=== PATIENT | male | born 1970 | race Caucasian/White ===

== ENCOUNTER 2024-07-06 06:58 | Inpatient (IN) | payer OTHER ==
[~2024-07-06] VITALS: Ht 152.4 cm; Wt 81.6 kg
[2024-07-06] MEDS ORDERED: KETOROLAC TROMETHAMINE 60 MG VIAL IM STA (08:22)
[2024-07-06 09:00] LABS: PLATELET COUNT 125 K/uL (150-450)
[2024-07-06 09:15] LABS: ANION GAP 13 (10.0-20.0); CARBON DIOXIDE 22 mEq/L (21-32); CHLORIDE 99 mmol/L (98-107); GFR 39.37; POTASSIUM 3.83 mEq/L (3.5-5.1); SODIUM 130 mmol/L (136-145)
[2024-07-06 09:24] LABS: PH,URINE 5.5 (5.0-8.0); URINE APPEARANCE Turbid; URINE BILIRRUBIN Moderate (NEGATIVE); URINE BLOOD Large; URINE COLOR Orange; URINE KETONE Negative (NEGATIVE); URINE LEUKOCYTE Small; URINE NITRATE Positive
[2024-07-06 09:25] LABS: URINE BACTERIA 269.6 uL (0.0-1933); URINE EPITHELIAL CELLS 174.7 uL (0.0-38.8); URINE WBC 179.1 uL (0.0-23.2)
[2024-07-06 09:57] LABS: ALBUMIN 2.3 gm/dL (3.4-5.0); ALT/SGPT 311 U/L (12-78); AST/SGOT 265 U/L (15-37); BILIRUBIN,CONJUGATED 2.36 mg/dL (0.0-0.2)
[2024-07-06 10:00] LABS: BILIRUBIN,UNCONJUGATED 2.24 mg/dL (0.0-0.6)
[2024-07-06 10:01] LABS: GLUCOSE FASTING 327 mg/dL (65-100)
[2024-07-06 10:03] LABS: URINE CAST > 21.83 uL (0.0-1.40); URINE GLUCOSE 100 MG/DL (NEGATIVE); URINE PROTEIN 300 (NEGATIVE)
[2024-07-06 10:04] LABS: URINE CRYSTALS FEW /HPF
[2024-07-06] MEDS ORDERED: RINGERS SOLUTION,LACTATED 1,000 ML IV SCH (10:30)
[2024-07-06 11:13] LABS: ANION GAP 11 (10.0-20.0); CARBON DIOXIDE 24 mEq/L (21-32); CHLORIDE 98 mmol/L (98-107); CREATININE SERUM 1.05 mg/dL (0.70-1.30); GFR 73.33; POTASSIUM 3.96 mEq/L (3.5-5.1); SODIUM 129 mmol/L (136-145)
[2024-07-06 11:14] LABS: LIPASE 2258 U/L (13-75)
[2024-07-06 11:41] LABS: MEAN CORPUSCULAR HEMOGLOBIN 35.9 pg (27.00-32.0); RED BLOOD COUNT 3.45 M/uL (4.00-6.00)
[2024-07-06 11:42] LABS: HEMATOCRIT 34.4 % (39.0-48.0); MEAN CELL VOLUME 99.6 fL (80.0-100.00); MEAN CORPUSCULAR HGB CONC 36.1 g/dl (32.0-36.0); RED CELL DISTRIBUTION WIDTH 15.4 % (11.5-14.5)
[2024-07-06 11:45] LABS: HEMOGLOBIN 12.4 g/dL (13-16.00)
[2024-07-06] MEDS ORDERED: CIPROFLOXACIN IN 5 % DEXTROSE 400 MG/200 ML PIGGYBAG IV SCH (12:27)
[2024-07-06] MEDS ORDERED: PANTOPRAZOLE SODIUM 40 MG/VIAL VIAL IV SCH (12:27)
[2024-07-06] MEDS ORDERED: METRONIDAZOLE/SODIUM CHLORIDE 500 MG/100 ML PIGGYBACK IV SCH (12:27)
[2024-07-06] MEDS ORDERED: 0.9 % SODIUM CHLORIDE 1,000 ML IV SCH (12:30)
[2024-07-06] MEDS ORDERED: MEPERIDINE HCL/PF 25 MG/ML VIAL IV PRN (12:30)
[2024-07-06 12:33] LABS: GLUCOSE FASTING 304 mg/dL (65-100)
[2024-07-06] MEDS ORDERED: DEXTROSE 50 % IN WATER 0.5 G/ML DISP.SYRIN IV PRN (12:45)
[2024-07-06] MEDS ORDERED: INSULIN LISPRO 1,000 UNIT/10 ML UNITS SUBCUTANEO PRN (12:45)
[2024-07-06 12:47] VITALS: BP 132/84
[2024-07-06 15:18] VITALS: BP 122/83; O2SAT 96
[2024-07-06 16:24] VITALS: BP 141/83; O2SAT 96
[2024-07-06 21:30] VITALS: BP 133/79; O2SAT 96
[2024-07-07 04:00] VITALS: BP 119/79; O2SAT 95
[2024-07-07 07:00] LABS: AMYLASE 560 U/L (25-115); LIPASE 1405 U/L (13-75)
[2024-07-07 07:02] LABS: ALBUMIN 2.4 gm/dL (3.4-5.0); ALKALINE PHOSPHATASE 239 U/L (50-136); ANION GAP 20 (10.0-20.0); BILIRUBIN TOTAL 5.05 mg/dL (0.3-1.2); CARBON DIOXIDE 16 mEq/L (21-32); CHLORIDE 103 mmol/L (98-107); CREATININE SERUM 2.34 mg/dL (0.70-1.30); GFR 29.08; GLUCOSE FASTING 198 mg/dL (65-100); POTASSIUM 3.98 mEq/L (3.5-5.1); SODIUM 135 mmol/L (136-145)
[2024-07-07 07:08] LABS: CHOL HDL RATIO 16.4 (0-5.0)
[2024-07-07 07:21] LABS: BLOOD UREA NITROGEN 19 mg/dL (7-18); BUN CREA RATIO 8 (7.0-25.0); OSMOLALITY SERUM 278 MOSM/KG (275-295)
[2024-07-07 07:34] LABS: ALT/SGPT 73 U/L (12-78); AST/SGOT 158 U/L (15-37)
[2024-07-07 07:35] LABS: PLATELET COUNT 139 K/uL (150-450); RED BLOOD COUNT 4.35 M/uL (4.00-6.00); RED CELL DISTRIBUTION WIDTH 15.4 % (11.5-14.5)
[2024-07-07 08:26] LABS: MEAN CELL VOLUME 97.9 fL (80.0-100.00); MEAN CORPUSCULAR HGB CONC 32.8 g/dl (32.0-36.0)
[2024-07-07 08:27] LABS: HEMOGLOBIN 14.4 g/dL (13-16.00); MEAN CORPUSCULAR HEMOGLOBIN 33.1 pg (27.00-32.0)
[2024-07-07 08:48] VITALS: BP 120/69; O2SAT 98
[2024-07-07] MEDS ORDERED: CEFTRIAXONE SODIUM 2,000 MG VIAL IV SCH (12:00)
[2024-07-07] MEDS ORDERED: FAMOTIDINE/PF 20 MG/2 ML VIAL IV NR (12:00)
[2024-07-07] MEDS ORDERED: FAMOTIDINE/PF 20 MG/2 ML VIAL IV SCH (17:00)
[2024-07-07 18:13] VITALS: BP 116/78; O2SAT 97
[2024-07-08 00:58] VITALS: BP 116/85
[2024-07-08 06:59] LABS: ALBUMIN 2.3 gm/dL (3.4-5.0); ALKALINE PHOSPHATASE 208 U/L (50-136); AMYLASE 288 U/L (25-115); ANION GAP 18 (10.0-20.0); BILIRUBIN TOTAL 6.27 mg/dL (0.3-1.2); BLOOD UREA NITROGEN 35 mg/dL (7-18); BUN CREA RATIO 12 (7.0-25.0); CARBON DIOXIDE 18 mEq/L (21-32); CHLORIDE 107 mmol/L (98-107); CREATININE SERUM 2.88 mg/dL (0.70-1.30); GFR 22.89; GLOBULINA 3.5 G/DL (2.4-3.5); GLUCOSE FASTING 164 mg/dL (65-100); OSMOLALITY SERUM 289 MOSM/KG (275-295); POTASSIUM 4.01 mEq/L (3.5-5.1); SODIUM 139 mmol/L (136-145); TOTAL PROTEIN 5.8 gm/dL (6.4-8.2)
[2024-07-08 07:15] LABS: AST/SGOT 145 U/L (15-37)
[2024-07-08 07:38] LABS: LIPASE 686 U/L (13-75)
[2024-07-08 08:07] LABS: ALT/SGPT 55 U/L (12-78)
[2024-07-08 08:42] VITALS: BP 127/66
[2024-07-08] MEDS ORDERED: FAMOTIDINE/PF 20 MG/2 ML VIAL IV SCH (09:00)
[2024-07-08 17:48] VITALS: BP 132/80; O2SAT 97
[2024-07-09 01:35] VITALS: BP 158/73
[2024-07-09 06:59] LABS: ALBUMIN 2.5 gm/dL (3.4-5.0); BILIRUBIN TOTAL 6.28 mg/dL (0.3-1.2); CREATININE SERUM 1.54 mg/dL (0.70-1.30); GFR 47.13; GLOBULINA 3.5 G/DL (2.4-3.5); POTASSIUM 3.79 mEq/L (3.5-5.1); PROSTATIC SPECIFIC ANTIGEN 0.676 NG/ML (0.010-4.00)
[2024-07-09 07:09] LABS: CHOL HDL RATIO 15.6 (0-5.0)
[2024-07-09 08:11] LABS: CALCIUM 5.9 mg/dL (8.5-10.1)
[2024-07-09 09:48] VITALS: BP 133/80; O2SAT 96
[2024-07-09] MEDS ORDERED: ACETAMINOPHEN 500 MG GEL..CAP PO PRN (18:00)
[2024-07-09 18:12] VITALS: BP 148/87; O2SAT 95
[2024-07-10 00:48] VITALS: BP 160/98; O2SAT 99
[2024-07-10] MEDS ORDERED: GEMFIBROZIL 600 MG TABLET PO SCH (09:00)
[2024-07-10] MEDS ORDERED: LEVALBUTEROL HCL 1.25 MG/3 ML SOLUTION IH SCH (09:00)
[2024-07-10 10:09] VITALS: BP 151/90; O2SAT 99
[2024-07-10 10:38] LABS: HEMATOCRIT 31.9 % (39.0-48.0); HEMOGLOBIN 10.8 g/dL (13-16.00); MEAN CELL VOLUME 94.6 fL (80.0-100.00); MEAN CORPUSCULAR HGB CONC 33.8 g/dl (32.0-36.0); PLATELET COUNT 182 K/uL (150-450); RED BLOOD COUNT 3.37 M/uL (4.00-6.00); RED CELL DISTRIBUTION WIDTH 15.6 % (11.5-14.5)
[2024-07-10 18:11] VITALS: BP 152/81
[2024-07-11 02:19] VITALS: BP 160/100
[2024-07-11 08:45] LABS: ALBUMIN 2.2 gm/dL (3.4-5.0); BILIRUBIN TOTAL 3.68 mg/dL (0.3-1.2); CALCIUM 8.1 mg/dL (8.5-10.1); CREATININE SERUM 0.81 mg/dL (0.70-1.30); GFR 98.93; GLOBULINA 3.3 G/DL (2.4-3.5); POTASSIUM 3.64 mEq/L (3.5-5.1); TOTAL PROTEIN 5.5 gm/dL (6.4-8.2)
[2024-07-11 09:50] VITALS: BP 154/86; O2SAT 97
[2024-07-11 20:08] VITALS: BP 156/82
[2024-07-12 01:40] VITALS: BP 154/93
[2024-07-12 08:53] VITALS: BP 158/85; O2SAT 99
[2024-07-12] MEDS ORDERED: METOPROLOL SUCCINATE 25 MG TAB.SR.24H PO SCH (10:56)
[2024-07-12] MEDS ORDERED: LOSARTAN POTASSIUM 25 MG TABLET PO SCH (10:57)
[2024-07-12 19:13] VITALS: BP 150/85; O2SAT 95
[2024-07-13 00:59] VITALS: BP 156/85
[2024-07-13 06:31] LABS: HEMATOCRIT 30.8 % (39.0-48.0); HEMOGLOBIN 10.3 g/dL (13-16.00); MEAN CELL VOLUME 95.4 fL (80.0-100.00); MEAN CORPUSCULAR HEMOGLOBIN 31.8 pg (27.00-32.0); MEAN CORPUSCULAR HGB CONC 33.3 g/dl (32.0-36.0); PLATELET COUNT 240 K/uL (150-450); RED BLOOD COUNT 3.23 M/uL (4.00-6.00); RED CELL DISTRIBUTION WIDTH 15.6 % (11.5-14.5)
[2024-07-13 07:13] LABS: CHOL HDL RATIO 13.8 (0-5.0)
[2024-07-13 07:25] LABS: BILIRUBIN TOTAL 2.62 mg/dL (0.3-1.2); CALCIUM 8.5 mg/dL (8.5-10.1); CREATININE SERUM 0.77 mg/dL (0.70-1.30); GFR 104.89; GLOBULINA 3.6 G/DL (2.4-3.5); POTASSIUM 3.62 mEq/L (3.5-5.1); TOTAL PROTEIN 5.6 gm/dL (6.4-8.2)
[2024-07-13 09:53] VITALS: BP 154/89; O2SAT 98
[2024-07-13 18:42] VITALS: BP 152/85; O2SAT 97
== END 2024-07-13 20:50 | disposition home or self-care (01) | DRG 439 ==
LOC: ER 06:58 → MEDI 13:14 → MEDJ 13:14
PROVIDERS: General Practice; Internal Medicine; Student in an Organized Health Care Education/Training Program; ADMIT Internal Medicine; ATTEND Internal Medicine
PROC: BW21ZZZ Computerized Tomography (CT Scan) of Abdomen and Pelvis (ICD-10-PCS; principal; 2024-07-06)
PROC: BW40ZZZ Ultrasonography of Abdomen (ICD-10-PCS; 2024-07-08)
PROC: BW4GZZZ Ultrasonography of Pelvic Region (ICD-10-PCS; 2024-07-08)
PROC: BF37ZZZ Magnetic Resonance Imaging (MRI) of Pancreas (ICD-10-PCS; 2024-07-09)
PROC: 3E0F7GC Introduction of Other Therapeutic Substance into Respiratory Tract, Via Natural or Artificial Opening (ICD-10-PCS; 2024-07-10)
DX: K85.80 Other acute pancreatitis without necrosis or infection (principal); K81.0 Acute cholecystitis; N17.9 Acute kidney failure, unspecified; N39.0 Urinary tract infection, site not specified; E78.1 Pure hyperglyceridemia; E11.22 Type 2 diabetes mellitus with diabetic chronic kidney disease; I12.9 Hypertensive chronic kidney disease with stage 1 through stage 4 chronic kidney disease, or unspecified chronic kidney disease; N18.9 Chronic kidney disease, unspecified; E11.65 Type 2 diabetes mellitus with hyperglycemia; N20.0 Calculus of kidney; K29.80 Duodenitis without bleeding; J98.01 Acute bronchospasm; D64.9 Anemia, unspecified; Z79.4 Long term (current) use of insulin